=== PATIENT | male | born 1940 | race Caucasian/White ===

== ENCOUNTER → 2016-07-19 | Day surgery (SDC) | payer BC ==
[2016-06-22 10:31] VITALS: BMI 23.0
[2016-07-06 13:01] VITALS: Ht 185.4 cm; Wt 81.8 kg
[~2016-07-19] VITALS: Ht 185.4 cm; Wt 81.8 kg
[~2016-07-19] MED LIST: 500ML BSS 0.3ML EPI 1:1000PF IRRIG ONE; ACETAMINOPHEN 325 MG TAB PO PRN; AMVISC PLUS 0.8ML SYRINGE INT OCU ONE; ASPI81TA28 PO; ATROPINE SULFATE 0.1 MG/ML 5ML SYR IV PRN; BRIMONIDINE TART 0.2% OP SOLN PER DROP CHARGE ONE; BSS FLUSH ONE; CYCLOPENTOLATE HCL 1% OP SOLN PER DROP CHARGE OPL SCH; DIFL0.0519 OPL; DONE1TAB26 PO; ENDOCOAT 0.85ML SYRINGE INT OCU ONE; EpHEDrine SULFATE INJ 50 MG/ML AMP IV PRN; EpINEphrine INJ 1MG/ML AMP 1 MG/ML AMP ONE; KETOROLAC 0.5% OP SOLN PER DROP CHARGE OPL SCH; LACTATED RINGER'S 1000ML 500 ML IV SCH; LIDOCAINE 4% OP SOLN DROP CHARGE ONE; LIDOCAINE 4% OP SOLN DROP CHARGE OPL SCH; LIDOCAINE HCL 1% MPF 2 ML VIAL ONE; MIDAZOLAM HCL 1 MG/ML 2ML VIAL ONE; MIX: 3ML BSS AND 1ML EPI(PF) TOP ONE; MOXIFLOXACIN OPH SOLN PER DROP CHARGE ONE; MOXIFLOXACIN OPH SOLN PER DROP CHARGE OPL SCH; NEPA0.6D OPL; PHENYLEPHRINE HCL 2.5% OP SOLN PER DROP CHARGE OPL SCH; POVIDONE-IODINE OP SOLN 30 ML BTL ONE; PROPARACAINE 0.5% OP SOLN PER DROP CHARGE OPL SCH; RMNER16 PO; SILD100T PO; TOBRAMYCIN/DEXAMETHASONE OPH OINT PER APPLN CHARGE ONE; TROPICAMIDE 1% OP SOLN PER DROP CHARGE OPL SCH
[2016-07-19] MEDS: PHENYLEPHRINE HCL 2.5% OP SOLN PER DROP CHARGE OPL SCH ×2 (09:22→09:27)
[2016-07-19] MEDS: TROPICAMIDE 1% OP SOLN PER DROP CHARGE OPL SCH ×2 (09:23→09:28)
[2016-07-19] MEDS: CYCLOPENTOLATE HCL 1% OP SOLN PER DROP CHARGE OPL SCH ×2 (09:24→09:28)
[2016-07-19] MEDS: KETOROLAC 0.5% OP SOLN PER DROP CHARGE OPL SCH ×2 (09:25→09:30)
--- NOTE | 2016-07-19 09:25 | History & Physical Bridge - [place] ---
H&P Re-Evaluation Bridge Note: I have examined the patient, reviewed the History & Physical and in the interval since the performance of the History & Physical I have noted the following changes of clinical significance: No changes noted
[2016-07-19] MEDS: MOXIFLOXACIN OPH SOLN PER DROP CHARGE OPL SCH ×2 (09:26→09:36)
--- NOTE | 2016-07-19 10:16 | Discharge Instructions-SurgCtr ---
Discharge Instructions Visit Reason for Visit: Cataract Left Eye Discharge Discharge Diagnosis / Problem: cataract left eye Discharge Goals Goal(s): Improve function Activity Recommendations Activity Limitations: per Instructions/Follow-up section Lifting Limitations: no more than 5 pounds Anesthesia . Post Anesthesia Instructions: If you have had General Anesthesia or IV Sedation: * Do not drive today. * Resume driving when surgeon permits. * Do not make important decisions or sign legal documents today. * Call surgeon for: 1. Temperature elevations greater than 101 degrees F. 2. Uncontrollable pain. 3. Excessive bleeding. 4. Persistent nausea and vomiting. 5. Medication intolerance (nausea, vomiting or rash). * For nausea and vomiting use only clear liquids such as: tea, soda, bouillon until nausea subsides, then gradually increase diet as tolerated. * If you have any concerns or questions, call your surgeon's office. If physician is unavailable and it is an emergency, call 911 or go to the nearest emergency room. . Instructions / Follow-Up Instructions / Follow-Up ACTIVITY RECOMMENDATIONS: * Light activities * You may walk outside, read, watch television. * Mild irritation and blurred vision are common for the first few days, redness around the white part of the eye is common. MEDICATIONS: Resume previous medications unless instructed otherwise by your surgeon. Eye drops (today and tomorrow): Cipro - one drop in operative eye every 2 hours while awake Durezol - one drop in operative eye every 2 hours while awake Ilevro - one drop operative eye 1 times daily SPECIAL CARE INSTRUCTIONS: * If any problems or concerns, please call Dr. Perry's office at . * Keep plastic shield taped over eye to sleep at night. * Keep plastic shield taped over eye except to administer eye drops. * Keep plastic shield on until office visit the following day. FOLLOW UP VISIT: Follow-up with Dr. Perry in the [place] office as scheduled. If not already scheduled, please call the office at . Diet Recommendations Home Diet: resume previous diet Procedures Procedures Performed: Left Cataract Phacoemulsification With Intraocular Lens Implant Pending Studies Studies pending at discharge: no Medical Emergencies . Who to Call and When: Medical Emergencies: If at any time you feel your situation is an emergency, please call 911 immediately. . Non-Emergent Contact Non-Emergency issues call your: [employer] . . "Provider Documentation" section prepared by Sony Perry.
--- NOTE | 2016-07-19 10:16 | [facility] Post Operative Brief Note ---
Immediate Operative Summary Operative Date Jul 19, 2016. Pre-Operative Diagnosis Cataract left eye Post-Operative Diagnosis same Procedure(s) Performed Left Cataract Phacoemulsification With Intraocular Lens Implant Surgeon Dr Perry Dialer Surgeon(s) 0 Estimated Blood Loss 0 Findings cataract left eye Specimens 0 Complication(s) None Disposition Recovery Room / PACU
[2016-07-19 10:23] VITALS: TEMP 36.7
--- NOTE | 2016-07-19 10:35 | OPERATIVE REPORT ---
DATE OF OPERATION: 07/19/2016 POSTOPERATIVE DIAGNOSIS: Cataract, left eye. PREOPERATIVE DIAGNOSIS: Cataract, left eye. POSTOPERATIVE DIAGNOSIS: Cataract, left eye. PROCEDURE: Phacoemulsification cataract extraction with intraocular lens placement, left eye. SURGEON: Dr. Perry. COMPLICATIONS: None. ESTIMATED BLOOD LOSS: None. ANESTHESIA: Topical with sedation. OPERATION AND FINDINGS: After informed consent was obtained in the holding area the patient was wheeled back to the Operating Room where cardiac monitoring leads and oxygen by nasal cannula was administered by Anesthesia. Gentle IV sedation was given, and the patient's left eye was prepped and draped in usual sterile fashion. A wire lid speculum was placed into the left eye and the operating microscope was swung into position. Using 0.12 forceps and a Supersharp blade a paracentesis port was made 3 o'clock hours away from the 3 o'clock position of patient's left eye. 1% non-preserved Lidocaine was then injected into the anterior chamber for anesthesia. A 2.2 mm keratotome blade was then used to make a shelved clear corneal incision at the 3 o'clock position of the patient's left eye. Amvisc was injected into the anterior chamber and a cystotome and Utrata forceps were used to perform a curvilinear capsulorrhexis. BSS on a hydrodissection cannula was used to hydrodissect the lens nucleus away from the capsular bag. The phacoemulsification handpiece was then used in a stop and chop fashion to remove the lens nucleus. The irrigation and aspiration handpiece was then used to remove the residual cortical material. Amvisc was injected into the capsular bag and anterior chamber and a Bausch \T\ Lomb MX60, 25.0 diopter intraocular lens was injected into the capsular bag. Irrigation and aspiration handpiece was used to remove the residual viscoelastic material. The wounds were hydrated and noted to be watertight. The wire lid speculum was removed from the eye. Vigamox, Brimonidine, and TobraDex ointment were placed on the eye and it was shielded. It should be noted that EndoCoat was used during the case to protect the cornea endothelium. A mixture of 1 mL of nonpreserved epinephrine and 3 mL of BSS was also injected into the eye at the beginning of the case to aid with pupillary dilation. DISPOSITION: The patient tolerated the procedure well and was wheeled to the post anesthesia care unit in stable condition. I attest to the content of the Intraoperative Record and any orders documented therein. Any exceptions are noted below. I attest to the content of the Intraoperative Record and any orders documented therein. Any exceptio ns are noted below.
[2016-07-19 10:37] VITALS: BP 171/96; PULSE 63; O2SAT 97
--- NOTE | 2016-07-19 10:38 | Anesthesia Progress Nt - [facility] ---
Anesthesia Post Op Note Date & Time Jul 19, 2016 at 10:38 Vital Signs Pain Intensity: 0 Vital Signs Past 12 Hours Date Time Temp Pulse Resp B/P Pulse Ox O2 Delivery O2 Flow Rate FiO2 07/19/16 10:23 36.7 67 20 185/81 99 Room Air 07/19/16 09:15 36.7 73 18 182/98 97 Room Air Notes Mental Status: alert / awake / arousable, participated in evaluation Pt Amnestic to Procedure: Yes Nausea / Vomiting: adequately controlled Pain: adequately controlled Airway Patency, RR, SpO2: stable & adequate BP & HR: stable & adequate Hydration State: stable & adequate Anesthetic Complications: no major complications apparent
== END | disposition home or self-care (01) ==
LOC: X.SURG 08:57
PROVIDERS: ATTEND Ophthalmology
DX: H25.12 Age-related nuclear cataract, left eye (principal)

== ENCOUNTER → 2016-08-23 | Day surgery (SDC) | payer BC ==
[2016-08-12 11:38] VITALS: Ht 185.4 cm; Wt 81.8 kg
[~2016-08-23] VITALS: Ht 185.4 cm; Wt 81.8 kg
[~2016-08-23] MED LIST changes: -500ML BSS 0.3ML EPI 1:1000PF IRRIG ONE; +500ML BSSPLUS 0.5ML EPI1:1000 IRRIG ONE; -AMVISC PLUS 0.8ML SYRINGE INT OCU ONE; +ATROPINE SULFATE 1% OP OINT PER APPLICATION CHARGE ONE; -BRIMONIDINE TART 0.2% OP SOLN PER DROP CHARGE ONE; +BUPIVACAINE HCL 0.75% 10 ML AMP/VIAL ONE; +CEFAZOLIN SOD 1 GM VIAL ONE; -CYCLOPENTOLATE HCL 1% OP SOLN PER DROP CHARGE OPL SCH; +DEXAMETHASONE SOD INJ 4 MG/ML VIAL ONE; -ENDOCOAT 0.85ML SYRINGE INT OCU ONE; +FENTANYL CITRATE INJ 50 MCG/1 ML 2 ML VIAL IV PRN; +HYALURONIDASE HUMAN 150 UNIT/ML INJ ONE; +HydrALAZINE HCL 20 MG/ML VIAL ONE; +INDOCYANINE GREEN 25 MG/10 ML ONE; -KETOROLAC 0.5% OP SOLN PER DROP CHARGE OPL SCH; +LABETALOL HCL IV 5 MG/ML 20ML ONE; -LIDOCAINE 4% OP SOLN DROP CHARGE ONE; -LIDOCAINE 4% OP SOLN DROP CHARGE OPL SCH; -LIDOCAINE HCL 1% MPF 2 ML VIAL ONE; +LIDOCAINE HCL 2% 2 ML VIAL (20MG/ML) ONE; +LIDOCAINE MPF 4% INJ INJ ONE; -MIDAZOLAM HCL 1 MG/ML 2ML VIAL ONE; -MIX: 3ML BSS AND 1ML EPI(PF) TOP ONE; -MOXIFLOXACIN OPH SOLN PER DROP CHARGE ONE; -MOXIFLOXACIN OPH SOLN PER DROP CHARGE OPL SCH; +NEOMYCIN/POLYMYX/DEXAMETH OP OINT PER APP CHARGE ONE; +OCUCOAT 1 ML SOLN IO ONE; +ONDANSETRON INJ 2 MG/ML 2 ML VIAL IV PRN; -PHENYLEPHRINE HCL 2.5% OP SOLN PER DROP CHARGE OPL SCH; -POVIDONE-IODINE OP SOLN 30 ML BTL ONE; +PROPOFOL IV EMULSION 10 MG/ML 20 ML VIAL IV ONE; +TIMOLOL MALEATE 0.5% OP SOLN PER DROP CHARGE ONE; -TOBRAMYCIN/DEXAMETHASONE OPH OINT PER APPLN CHARGE ONE; -TROPICAMIDE 1% OP SOLN PER DROP CHARGE OPL SCH
[2016-08-23] MEDS: PHENYLEPHRINE HCL 2.5% OP SOLN PER DROP CHARGE OPL SCH ×2 (10:39→10:44)
[2016-08-23] MEDS: TROPICAMIDE 1% OP SOLN PER DROP CHARGE OPL SCH ×2 (10:40→10:45)
--- NOTE | 2016-08-23 11:44 | History & Physical Bridge - [place] ---
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 I have examined the patient, reviewed the History & Physical and in the interval since the performance of the History & Physical I have noted the following changes of clinical significance: No changes noted
--- NOTE | 2016-08-23 12:49 | Discharge Instructions-SurgCtr ---
Discharge Instructions Visit Reason for Visit: Left Eye Epiretinal Membrane Discharge Discharge Diagnosis / Problem: same Discharge Goals Goal(s): Improve function Activity Recommendations Activity Limitations: per Instructions/Follow-up section Anesthesia . Post Anesthesia Instructions: If you have had General Anesthesia or IV Sedation: * Do not drive today. * Resume driving when surgeon permits. * Do not make important decisions or sign legal documents today. * Call surgeon for: 1. Temperature elevations greater than 101 degrees F. 2. Uncontrollable pain. 3. Excessive bleeding. 4. Persistent nausea and vomiting. 5. Medication intolerance (nausea, vomiting or rash). * For nausea and vomiting use only clear liquids such as: tea, soda, bouillon until nausea subsides, then gradually increase diet as tolerated. * If you have any concerns or questions, call your surgeon's office. If physician is unavailable and it is an emergency, call 911 or go to the nearest emergency room. . Instructions / Follow-Up Instructions / Follow-Up * May take Tylenol if needed for discomfort. * Do NOT remove eye shield. * NO straining, heavy lifting (>15 pounds) or bending below waist. * Avoid getting water or soap directly into operative eye. * Do NOT rub eye. If you experience increasing eye pain not relieved by medication, please contact us immediately at [phone]. If you are unable to reach someone at the above number, call [phone] and ask to speak with the EYE DOCTOR REPRESENTATIVE. Inform them that you are a Dr. Ervin patient who had recent surgery. Diet Recommendations Home Diet: resume previous diet Procedures Procedures Performed: Left Eye 23 Guage Vitrectomy, Membrane Peeling Pending Studies Studies pending at discharge: no Medical Emergencies . Who to Call and When: Medical Emergencies: If at any time you feel your situation is an emergency, please call 911 immediately. . Non-Emergent Contact . . "Provider Documentation" section prepared by Varun Ervin.
--- NOTE | 2016-08-23 12:49 | [facility] Operative Report ---
Operative Report PREOPERATIVE DIAGNOSIS: Epiretinal membrane, left eye. ICD10: H35.372 POSTOPERATIVE DIAGNOSIS: same. PROCEDURE: 1. Pars plana vitrectomy, 23 gauge. 2. Membrane peeling of the internal limiting membrane and overlying epiretinal membrane. All to the left eye. CPT CODE: 52947 SURGEON: Varun Ervin D.O. COMPLICATIONS: None. ESTIMATED BLOOD LOSS: None. SPECIMENS: None. ANESTHESIA: Retrobulbar block and MAC. INDICATIONS FOR PROCEDURE: The patient has an epiretinal membrane that is visually significant. Vitrectomy surgery is indicated to decrease risk of vision loss and potentially improve vision. CONSENT: The risks, benefits and alternatives were discussed with the patient including but not limited to decreased visual acuity, failure to achieve desired results, loss of the eye, infection, pain, glaucoma, lens changes, retinal tears, retinal detachment, the need for more procedures, drooping of the eyelid, blindness, and double vision. The patient is aware of risks and consents to the surgery. Consent is signed and on the chart. OPERATION AND FINDINGS: The patient was brought to the operating room where the patient was identified by name, date, and medical record number. The surgical site was confirmed with the informed written consent. The patient was sedated by the anesthesiology team after which a 50:50 mixture of 4% lidocaine and 0.75% bupivacaine with hyaluronidase was administered in a standard retrobulbar fashion. A total of 4 ml was administered without difficulty. The patient was then prepped and draped in the usual sterile manner for retinal surgery. A wire lid speculum was placed and an Junior 23-gauge trocar cannula system was employed. The inferior temporal trocar cannula was first placed in an angled fashion 3.75mm posterior to the surgical limbus and the infusion cannula was inserted into this cannula after which the intravitreal position was verified prior to turning the infusion on. Two more trocar cannulas were then inserted in an angled fashion, one in the superior temporal, and one in the superior nasal quadrant both 3.75mm posterior to the surgical limbus. A light pipe and vitrector were then introduced into the eye and the BIOM wide angle viewing system was brought into place. Standard core vitrectomy was performed the vitreous was insured to be totally detached from the posterior pole with the aid of the vitrector. Next 0.05ml of indocyanine green was placed over the macular surface to stain the internal limiting membrane. This was washed from the eye after 10 seconds. At this point a flat contact lens was placed on the surface of the eye and a flex scraper and ILM forceps were used to gently peel the internal limiting membrane and overlying epiretinal membrane off of the macular surface without difficulty. At this point scleral depression was performed for 360 degrees and no retinal tears or detachments were noted. The trocar cannulas were then removed and found to be water tight. The intraocular pressure was found to be within normal limits by palpation and subconjunctival injections of Kefzol and dexamethasone were administered inferiorly and superiorly. The wire lid speculum was removed. Maxitrol was applied to the surface of the eye. A light patch and shield were taped over the surface of the eye and the patient left the Operating Room in stable condition having tolerated the procedure well. DISPOSITION: The patient has an appointment the following morning in the Ophthalmology Clinic. The patient is to call immediately if there are any problems overnight. I attest to the content of the Intraoperative Record and any orders documented therein. Any exceptions are noted below.
[2016-08-23 12:54] VITALS: TEMP 36.7
[2016-08-23 13:42] VITALS: BP 168/84; PULSE 69; O2SAT 97
--- NOTE | 2016-08-23 13:49 | Anesthesia Progress Nt - [facility] ---
Anesthesia Post Op Note Date & Time Aug 23, 2016 at 13:43 Vital Signs Pain Intensity: 0 Vital Signs Past 12 Hours Date Time Temp Pulse Resp B/P Pulse Ox O2 Delivery O2 Flow Rate FiO2 08/23/16 13:42 69 16 168/84 97 Room Air 08/23/16 13:17 67 16 192/92 97 Room Air 08/23/16 12:54 36.7 72 16 208/107 97 Room Air 08/23/16 10:33 36.4 77 18 184/93 99 Room Air Notes Mental Status: alert / awake / arousable, participated in evaluation Pt Amnestic to Procedure: Yes Nausea / Vomiting: adequately controlled Pain: adequately controlled Airway Patency, RR, SpO2: stable & adequate BP & HR: stable & adequate Hydration State: stable & adequate Anesthetic Complications: no major complications apparent The patient is a 76 y/o male with a h/o HTN, OA and prostate CA s/p L eye vitrectomy with Dr. Ervin. The patient's BP on arrival was elevated to 184/ 93. Per his , the patient's BP at his PCP last week was in the 130s systolic. He is not currently on any antihypertensive medications. The patient felt well with no complaints denying chest pain, shortness of breath, lightheaded or dizziness or HAs. No ECG changes on the monitor. Intraoperatively he was given 25mg IV Labetalol. He was also given a total of 10mg IV hydralazine in recovery. His BP on discharge improved to 168/84. The patient was instructed to take his BP tomorrow and if it is elevated to call his PCP. He was instructed to go to the ED if his BP was greater that 190 systolic or 100 diastolic or if he had any chest pain, shortness of breath, lightheaded or dizziness, severe BEAR or with any other concerns. He understands and agrees.
== END | disposition home or self-care (01) ==
LOC: X.SURG 10:13
PROVIDERS: ATTEND Ophthalmology
DX: H35.372 Puckering of macula, left eye (principal); I10 Essential (primary) hypertension; Z98.890 Other specified postprocedural states; Z85.46 Personal history of malignant neoplasm of prostate; Z87.891 Personal history of nicotine dependence

== ENCOUNTER → 2016-09-21 | Outpatient (CLI) | payer BC ==
[~2016-09-21] MED LIST changes: -500ML BSSPLUS 0.5ML EPI1:1000 IRRIG ONE; -ACETAMINOPHEN 325 MG TAB PO PRN; -ATROPINE SULFATE 0.1 MG/ML 5ML SYR IV PRN; -ATROPINE SULFATE 1% OP OINT PER APPLICATION CHARGE ONE; -BSS FLUSH ONE; -BUPIVACAINE HCL 0.75% 10 ML AMP/VIAL ONE; -CEFAZOLIN SOD 1 GM VIAL ONE; -DEXAMETHASONE SOD INJ 4 MG/ML VIAL ONE; -EpHEDrine SULFATE INJ 50 MG/ML AMP IV PRN; -EpINEphrine INJ 1MG/ML AMP 1 MG/ML AMP ONE; -FENTANYL CITRATE INJ 50 MCG/1 ML 2 ML VIAL IV PRN; -HYALURONIDASE HUMAN 150 UNIT/ML INJ ONE; -HydrALAZINE HCL 20 MG/ML VIAL ONE; -INDOCYANINE GREEN 25 MG/10 ML ONE; -LABETALOL HCL IV 5 MG/ML 20ML ONE; -LACTATED RINGER'S 1000ML 500 ML IV SCH; -LIDOCAINE HCL 2% 2 ML VIAL (20MG/ML) ONE; -LIDOCAINE MPF 4% INJ INJ ONE; -NEOMYCIN/POLYMYX/DEXAMETH OP OINT PER APP CHARGE ONE; -OCUCOAT 1 ML SOLN IO ONE; -ONDANSETRON INJ 2 MG/ML 2 ML VIAL IV PRN; -PROPARACAINE 0.5% OP SOLN PER DROP CHARGE OPL SCH; -PROPOFOL IV EMULSION 10 MG/ML 20 ML VIAL IV ONE; -TIMOLOL MALEATE 0.5% OP SOLN PER DROP CHARGE ONE
== END | disposition home or self-care (01) ==
LOC: C.LAB 14:20
PROVIDERS: ATTEND Urology
DX: C61 Malignant neoplasm of prostate (principal)

== ENCOUNTER → 2016-12-03 | Outpatient (CLI) | payer BC ==
[2016-12-03 09:41] LABS: BASO % 0.2 %; BASO ABS # 0.01 K/uL (0-0.2); COMPLETE YES; HEMATOCRIT 46.8 % (42-52); IG% 0.2 %; LYMPH ABS # 1.48 K/uL (1.2-3.4); MEAN CELL VOLUME 96.9 fL (80-100); MEAN CORPUSCULAR HEMOGLOBIN 31.3 pg (25-34); MEAN CORPUSCULAR HGB CONC 32.3 g/dl (32-36); MEAN PLATELET VOLUME 9.4 fL (7.4-10.4); MONO % 8.2 %; NEUT % 58.4 %; PLATELET COUNT 270 K/uL (130-400); RED BLOOD COUNT 4.83 M/uL (4.7-6.1); WHITE BLOOD COUNT 5.49 K/uL (4.8-10.8)
[2016-12-03 09:59] LABS: ALT/SGPT 26 U/L (12-78); AST/SGOT 19 U/L (15-37); BLOOD UREA NITROGEN 16 mg/dl (7-18); BUN/CREATININE RATIO 14.3 (10-20); CARBON DIOXIDE 28 mmol/L (21-32); CHLORIDE 107 mmol/L (98-107); CHOLESTEROL 190 mg/dl (0-200); GLUCOSE 88 mg/dl (70-99); POTASSIUM 3.9 mmol/L (3.5-5.1); SODIUM 143 mmol/L (136-145); TRIGLYCERIDES 106 mg/dl (0-150); VERY LOW DENSITY LIPOPROT CALC 21 mg/dl
[2016-12-03 10:10] LABS: ALB/GLOB RATIO 1.3 (0.9-2); ALKALINE PHOSPHATASE 81 U/L (45-117); CHOLESTEROL/HDL RATIO 3.2; HDL CHOLESTEROL 59 mg/dl; LDL CHOLESTEROL CALCULATED 110 mg/dl
== END | disposition home or self-care (01) ==
LOC: C.LAB 07:02
PROVIDERS: ATTEND Internal Medicine
DX: Z13.220 Encounter for screening for lipoid disorders (principal)

== ENCOUNTER 2023-02-06 09:39 | Observation (INO) ==
[2023-02-06] MEDS ORDERED: SODIUM CHLORIDE 0.9% 1000ML 1,000 ML IV ONE (09:58)
--- NOTE | 2023-02-06 10:03 | Emergency Department Note ---
History of Present Illness General Chief complaint: Dehydration Stated complaint: DEMENTIA, NOT EATING, DEHYDRATION Time Seen by Provider: 02/06/23 09:41 History of Present Illness Maximum Pain Intensity: 6 82-year-old male presents emergency department with family reportedly decreased p.o. intake and weight loss over the past week. Patient had constipation a few months ago has been on Colace and has had diarrhea. Patient denies any abdominal pain nausea or vomiting. Patient's family states he just will not eat. If he eats any solids he has been eating ice cream. Patient states that he is not hungry and there is been a reported weight loss. Family brought him in due to the potential for dehydration. He has not had any recent infections. Home Medications Medication Instructions Recorded Confirmed Type multivitamin (Daily Multi-Vitamin 1 tab PO DAILY 05/11/22 02/06/23 History tablet) donepezil 10 mg tablet 10 mg PO DAILY 11/19/22 02/06/23 History buspirone 10 mg tablet 10 mg PO BID #180 tabs 01/26/23 02/06/23 Rx Allergies Allergy/AdvReac Type Severity Reaction Status Date / Time No Known Allergies Allergy Verified 01/26/23 10:43 Past Med/Surg History Medical History (Updated 02/06/23 @ 12:18 by Jesn Santiago DO) Actinic keratosis Arthritis Elevated blood pressure reading without diagnosis of hypertension Fatigue Foot pain, bilateral Foot pain, right Gilbert's syndrome Insomnia Laryngopharyngeal reflux Male erectile disorder of organic origin Malignant neoplasm of prostate Mild neurocognitive disorder Neck pain Osteoarthritis, hand Pain in joint of right hip Varicocele Ventral hernia Vitamin D deficiency Surgical History History of prostate surgery History of repair of rotator cuff History of ventral hernia repair Family History Father Colon cancer Mother Alzheimer disease Brother Heart disease Myocardial infarction Denies family history of Ovarian cancer Prostate cancer Breast cancer Social History Smoking Status: Never smoker Tobacco Type: Cigarettes Age Started Using Tobacco: 14; Age Quit Using Tobacco: 18; Cigarettes Per Day: social; Second Hand Exposure: No; Do You Dip or Chew Tobacco: No; Hx Alcohol Use: No Hx Substance Use: No Preferred Language: Arabic Communication Ability: Effective Visual Impairment: Limited Hearing Ability: Normal Customer Service Officer Required: No marital status: Current Living Situation: Spouse current occupational status: retired How many Children do You have: 2 Feels Safe at Home: Yes Childhood Exposure to Second-Hand Smoke: Yes caffeine: No Dental Care, Regularly: Yes Physical Activity Frequency: 1-2 Times per Week Seatbelt Use: always Sunscreen Use: No (hat and long sleeves) Review of Systems Unobtainable due to cognitive status Physical Exam Vital Signs Vital Signs - 24 hr 02/06/23 09:46 02/06/23 10:13 02/06/23 10:13 Temperature 36.6 C Temperature Source Temporal Artery Scan Oral Pulse Rate 74 Respiratory Rate 20 Respiratory Effort / Characteristics Non-Labored Respiratory Depth Normal Normal Blood Pressure 205/91 H Blood Pressure Mean 129 Pulse Oximetry 99 Oxygen Delivery Method Room Air Room Air Sepsis Recent Fever Within 48 Hours No Sepsis New/Unexplained Change in Mental Status Yes Sepsis Action Taken by Nursing No Action Required 02/06/23 10:20 Temperature Temperature Source Pulse Rate 74 Respiratory Rate Respiratory Effort / Characteristics Respiratory Depth Blood Pressure Blood Pressure Mean Pulse Oximetry Oxygen Delivery Method Sepsis Recent Fever Within 48 Hours Sepsis New/Unexplained Change in Mental Status Sepsis Action Taken by Nursing GENERAL: Patient is awake alert in no acute distress patient is resting comfortably and showing no signs of anxiety; frail in appearance EYES: The conjunctivae are clear. The pupils are round and reactive. EARS, NOSE, MOUTH AND THROAT: The nose is without any evidence of any deformity. Mucous membranes are moist. Tongue is midline. Patient's lower lip has an area of bruising NECK: The neck is nontender and supple. RESPIRATORY: Normal respiratory effort is noted there is no evidence of wheezing rhonchi or rales CARDIOVASCULAR: Regular rate and rhythm noted there no murmurs rubs or gallops normal S1 normal S2. GASTROINTESTINAL: The abdomen is soft. Abdomen is nontender. No rebound rigidity or guarding BACK: No midline tenderness or or step-off noted range of motion in flexion extension as well as rotation no signs of muscle spasm noted MUSCULOSKELETAL/EXTREMITIES: There is no evidence of gross deformity full range of motion is noted in the hips and shoulders. SKIN: There is no obvious evidence of any rash. There are no petechiae, pallor or cyanosis noted. Poor skin turgor NEUROLOGIC: Patient is awake alert and oriented x1 Course Reevaluation(s) Reevaluation #1: Patient is resting in no distress on repeat examination. Time: 13:21 Consultations Consultation #1: Case was discussed with the [facility] for admit Time: 13:21 Administered Medications Discontinued Medications Acetaminophen (Acetaminophen 500 Mg Tab) 1,000 mg PO NOW STA Stop: 02/06/23 11:07 Last Admin: 02/06/23 11:50 Dose: 1,000 mg Documented By: SUSAN Sodium Chloride (Nss 1000ml) 1,000 mls @ 999 mls/hr IV .Q1H1M ONE Stop: 02/06/23 10:58 Last Infusion: 02/06/23 11:50 Dose: 0 mls/hr Documented By: Admin: 02/06/23 10:08 Dose: 999 mls/hr Documented By: SUSAN Medical Decision Making Medical Records Attestation: I reviewed the patient's medical records. Home Medications Current Medication List: was personally reviewed by me Laboratory Data Attestation: I reviewed the patient's lab results. Lab work interpreted by me is unremarkable except for a slightly elevated T. bili 02/06/23 10:02 02/06/23 10:02 Lab Results 02/06/23 02/06/23 02/06/23 Range/Units 10:02 10:02 10:02 WBC 5.97 (4.8-10.8) K/ul RBC 4.86 (4.70-6.10) M/uL Hgb 15.3 (14.0-18.0) g/dl Hct 45.1 (42.0-52.0) % MCV 92.8 (80.0-100.0) fL MCH 31.5 (25.0-34.0) pg MCHC 33.9 (32.0-36.0) g/dL RDW Std Deviation 44.4 (36.4-46.3) fL RDW Coeff of Jean-Paul 12.9 (11.5-14.5) % Plt Count 237 (130-400) K/uL MPV 9.0 L (9.4-12.4) fL Immature Gran % (Auto) 0.2 % Neut % (Auto) 63.8 % Lymph % (Auto) 22.3 % [place] % (Auto) 10.2 % Eos % (Auto) 3.0 % Baso % (Auto) 0.5 % Neut # (Auto) 3.81 (1.40-6.50) K/uL Lymph # (Auto) 1.33 (1.2-3.4) K/uL [place] # (Auto) 0.61 H (0.11-0.59) K/uL Eos # (Auto) 0.18 (0-0.50) K/uL Baso # (Auto) 0.03 (0-0.2) K/uL Immature Gran # (Auto) 0.01 (0.01-0.20) K/uL Sodium 139 (136-145) mmol/L Potassium 3.8 (3.5-5.1) mmol/L Chloride 104 (98-107) mmol/L Carbon Dioxide 29 (21-32) mmol/L Anion Gap 6 (3-11) BUN 17 (6-23) mg/dl Creatinine 1.08 (0.6-1.4) mg/dl Est Cr Clr Drug Dosing 40.2 ml/min Est GFR ( Amer) 72.7 ml/min Est GFR (Non-Af Amer) 62.7 ml/min BUN/Creatinine Ratio 15.7 (10-20) Glucose 95 (70-99(Fasting)) mg/dl Lactate (0.4-2.0) mmol/L Calcium 9.6 (8.6-10.3) mg/dl Magnesium 2.2 (1.7-2.4) mg/dl Total Bilirubin 1.8 H (0.2-1.0) mg/dl Direct Bilirubin 0.3 H (0-0.2) mg/dl AST 20 (13-39) U/L ALT 20 (7-52) U/L Alkaline Phosphatase 82 (34-104) U/L Troponin I High Sens 6.2 (0-20) pg/ml Total Protein 7.0 (6.0-8.3) gm/dl Albumin 4.3 (3.4-5.0) gm/dl Procalcitonin < 0.05 (0-0.5) ng/ml Urine Color Urine Appearance (Clear) Urine pH (4.5-7.5) Ur Specific [place] (1.000-1.030) Urine Protein (Negative) Urine Glucose (UA) (Negative) Urine Ketones (Negative) Urine Blood (Negative) Urine Nitrite (Negative) Urine Bilirubin (Negative) Urine Urobilinogen (Negative) Ur Leukocyte Esterase (Negative) 02/06/23 02/06/23 Range/Units 10:05 11:51 WBC (4.8-10.8) K/ul RBC (4.70-6.10) M/uL Hgb (14.0-18.0) g/dl Hct (42.0-52.0) % MCV (80.0-100.0) fL MCH (25.0-34.0) pg MCHC (32.0-36.0) g/dL RDW Std Deviation (36.4-46.3) fL RDW Coeff of Jean-Paul (11.5-14.5) % Plt Count (130-400) K/uL MPV (9.4-12.4) fL Immature Gran % (Auto) % Neut % (Auto) % Lymph % (Auto) % [place] % (Auto) % Eos % (Auto) % Baso % (Auto) % Neut # (Auto) (1.40-6.50) K/uL Lymph # (Auto) (1.2-3.4) K/uL [place] # (Auto) (0.11-0.59) K/uL Eos # (Auto) (0-0.50) K/uL Baso # (Auto) (0-0.2) K/uL Immature Gran # (Auto) (0.01-0.20) K/uL Sodium (136-145) mmol/L Potassium (3.5-5.1) mmol/L Chloride (98-107) mmol/L Carbon Dioxide (21-32) mmol/L Anion Gap (3-11) BUN (6-23) mg/dl Creatinine (0.6-1.4) mg/dl Est Cr Clr Drug Dosing ml/min Est GFR ( Amer) ml/min Est GFR (Non-Af Amer) ml/min BUN/Creatinine Ratio (10-20) Glucose (70-99(Fasting)) mg/dl Lactate 0.9 (0.4-2.0) mmol/L Calcium (8.6-10.3) mg/dl Magnesium (1.7-2.4) mg/dl Total Bilirubin (0.2-1.0) mg/dl Direct Bilirubin (0-0.2) mg/dl AST (13-39) U/L ALT (7-52) U/L Alkaline Phosphatase (34-104) U/L Troponin I High Sens (0-20) pg/ml Total Protein (6.0-8.3) gm/dl Albumin (3.4-5.0) gm/dl Procalcitonin (0-0.5) ng/ml Urine Color Yellow Urine Appearance Clear (Clear) Urine pH 7.5 (4.5-7.5) Ur Specific [place] 1.013 (1.000-1.030) Urine Protein Negative (Negative) Urine Glucose (UA) Negative (Negative) Urine Ketones Trace H (Negative) Urine Blood Negative (Negative) Urine Nitrite Negative (Negative) Urine Bilirubin Negative (Negative) Urine Urobilinogen Negative (Negative) Ur Leukocyte Esterase Negative (Negative) Imaging Data Attestation: I personally reviewed and interpreted this imaging study as follows: My Impression: Chest x-ray interpreted by me negative for infiltrate Radiologist's Impression: Chest X-Ray 02/06/23 09:57 XR chest 1V portable HISTORY: 82 years-old Male Sepsis acute sepsis COMPARISON: None TECHNIQUE: AP view of the chest FINDINGS: Cardiac mediastinal and hilar silhouettes are within normal limits. No pneumothorax, pleural effusion, airspace consolidation or pulmonary edema. Spondylotic spurring of the spine. IMPRESSION: No acute process. ACT 112: Negative or not required by law. The above report was generated using voice recognition software. It may contain grammatical, syntax or spelling errors. Electronically signed by: Gautam Saldaña M.D. 02/06/2023 10:32 AM ECG Data Attestation: I personally reviewed and interpreted this ECG as follows: Additional Comments: EKG interpreted by me normal sinus rhythm, left ventricular hypertrophy, no obvious ST segment elevation or depression, normal intervals, normal axis, rate is 73 Telemetry was ordered by me, interpreted as normal sinus rhythm rate of 73 MDM Narrative Medical decision making differential diagnosis includes dehydration, electrolyte abnormality, sepsis, urinary tract infection, failure to thrive Plan is to check sepsis labs, give IV fluids Independent history was provided by the patient's daughter at bedside External medical records were reviewed by me Patient has a failure to thrive, will not eat, has weight loss, family reportedly cannot handle taking care of the patient any further Patient will be admitted for potential placement and further evaluation Impression & Plan Dehydration, Dementia, Weakness Discharge Plan Visit Data Chief Complaint: Dehydration Stated Complaint: DEMENTIA, NOT EATING, DEHYDRATION ED Provider: Jens Santiago Discharge Problem: Dehydration, Dementia, Weakness Patient Disposition: Admitted As Inpatient Forms Stand Alone Forms: [facility] Prescriptions Prescriptions: No Action multivitamin [Daily Multi-Vitamin] Tablet 1 tab PO DAILY buspirone 10 mg tablet 10 mg PO BID Qty: 180 3RF donepezil 10 mg tablet 10 mg PO DAILY Rx Instructions: TAKE 1 TABLET DAILY Referrals Referrals: Juni Shin III, CRNP [Primary Care Provider] -
[2023-02-06 10:26] LABS: Basophils # (auto) 0.03 K/uL (0-0.2); Basophils % (auto) 0.5 %; Eosinophils # (auto) 0.18 K/uL (0-0.50); Hematocrit (blood only) 45.1 % (42.0-52.0); Hemoglobin 15.3 g/dl (14.0-18.0); Immature Granulocytes # (auto) 0.01 K/uL (0.01-0.20); Immature Granulocytes % (auto) 0.2 %; Lymphocytes # (auto) 1.33 K/uL (1.2-3.4); Lymphocytes % (auto) 22.3 %; Mean Corpuscular Hemoglobin 31.5 pg (25.0-34.0); Mean Corpuscular Hgb Conc 33.9 g/dL (32.0-36.0); Mean Corpuscular Volume 92.8 fL (80.0-100.0); Monocytes # (auto) 0.61 K/uL (0.11-0.59); Monocytes % (auto) 10.2 %; Neutrophils # (auto) 3.81 K/uL (1.40-6.50); Neutrophils % (auto) 63.8 %; Platelet Count 237 K/uL (130-400); RDW Coefficient of Variation 12.9 % (11.5-14.5); RDW Standard Deviation 44.4 fL (36.4-46.3); Red Blood Count 4.86 M/uL (4.70-6.10); White Blood Count 5.97 K/ul (4.8-10.8)
--- NOTE | 2023-02-06 10:33 | XRay Report ---
XR chest 1V portable HISTORY: 82 years-old Male Sepsis acute sepsis COMPARISON: None TECHNIQUE: AP view of the chest FINDINGS: Cardiac mediastinal and hilar silhouettes are within normal limits. No pneumothorax, pleural effusion , airspace consolidation or pulmonary edema. Spondylotic spurring of the spine. IMPRESSION: No acute process. ACT 112: Negative or not required by law. The above report was generated using voice recognition software. It may contain grammatical, syntax o r spelling errors. Electronically signed by: Gautam Saldaña M.D. 02/06/2023 10:32 AM
[2023-02-06 10:57] LABS: Albumin Level 4.3 gm/dl (3.4-5.0); BUN Creatinine Ratio 15.7 (10-20); Bilirubin Direct 0.3 mg/dl (0-0.2); Bilirubin,Total 1.8 mg/dl (0.2-1.0); Calcium 9.6 mg/dl (8.6-10.3); Creatinine Clr Calc Pharmacy 40.2 ml/min; Est GFR (African American) 72.7 ml/min; Est GFR (Non-African American) 62.7 ml/min; Magnesium 2.2 mg/dl (1.7-2.4); Potassium 3.8 mmol/L (3.5-5.1)
[2023-02-06 11:03] LABS: Troponin I High Sensitivity 6.2 pg/ml (0-20)
[2023-02-06] MEDS ORDERED: ACETAMINOPHEN 500 MG TAB PO STA (11:06)
[2023-02-06 12:03] LABS: Appearance Urine Clear (Clear); Bilirubin Urine Negative (Negative); Blood Urine Negative (Negative); Color Urine Yellow; Glucose Urine UA Negative (Negative); Ketones Urine Trace (Negative); Leukocyte Esterase Urine Negative (Negative); Nitrite Urine Negative (Negative); Protein Urine Negative (Negative); Specific Gravity Urine 1.013 (1.000-1.030); Urobilinogen Urine Negative (Negative); pH Urine 7.5 (4.5-7.5)
--- NOTE | 2023-02-06 12:44 | Electrocardiogram Report ---
Test Reason : Blood Pressure : / mmHG Vent. Rate : 073 BPM Atrial Rate : 073 BPM P-R Int : 198 ms QRS Dur : 092 ms QT Int : 412 ms P-R-T Axes : 075 043 002 degrees QTc Int : 453 ms Normal sinus rhythm Left ventricular hypertrophy with repolarization abnormality Abnormal ECG When compared with ECG of 28-OCT-2014 11:51, Nonspecific T wave abnormality now evident in Anterior leads Confirmed by Varun Yoon ([id number]) on 02/06/2023 12:43:52 PM Referred By: Confirmed By:Tato Yoon
--- NOTE | 2023-02-06 13:14 | History & Physical Report ---
Date of Service February 06, 2023 Assessment & Plan (1) Weakness: Plan: Weakness with poor p.o. intake. ?primary loss of appetite 2/2 dementia vs constipation with overflow Patient has refused to eat for the last week citing constipation despite having liquid bowel movements with laxatives at home Patient has had progressively decreasing diet with severe underlying dementia for the last few months, it is much worse in the last week Seen at the bedside with his daughter who notes significant distress over this. Notes at one point to Jefe "you cannot put me in this position to let you starve, it is amoral ". Did clarify natural history of dementia, and that after losing the drive to eat it sometimes causes more distress for patient to attempt to eat through discomfort, and that alternative options such as feeding tubes are very invasive and often not within what he patient would have wanted for themselves. Reviewed that patient's may sometimes wish to eat only what is comfortable, knowing that they will eventually pass if they have decreased nutri tion but comfort oriented nutrition can help preserve quality of life and bodily integrity over length of life. Did discuss meeting with palliative care to which they are open to. Patient did have moderate colonic retention on CT scan in November. Given significant distress and worsened will repeat CT.? Stool burden, patient despite having diarrhea may be constipated and having overflow incontinence in which case may benefit from an aggressive bowel regimen Will attempt appetite stimulation with Marinol starting at 2.5 mg twice daily and uptitrate PT/OT pending, CM consulted Severe dementia Continue donepezil At risk for delirium, melatonin nightly, delirium precautions DVT prophylaxis: Lovenox Diet: Regular as tolerated Disposition: Medical/surgical CODE STATUS: DNR/DNI discussed with Jefe and his daughter at bedside (2) Dehydration: History of Present Illness Primary Care Provider: Juni Shin, III, AMRITA Jefe is an 82-year-old male with a past medical history of hypertension, weakness, dementia, tenderness who presents [facility] placement request. Won't eat, weight loss. Patient seen with daughter at the bedside. They note that Jefe has been losing weight over the previous few months, and especially in the last week as he has refused to eat. She notes that due to his dementia he does not remember having bowel movements, despite taking Colace/senna and having diarrhea daily, and having had abdominal imaging which shows no obstruction or abnormalities or constipation, Jefe is not hungry and refuses to eat and he cites the reason as being constipated. This is very distressing to her, and notes he is "wasting away pound by pound ". Did not notice any fever, chills, sweats. He has not had any abdominal pain. He does have some perirectal pain which his daughter thinks is from having diarrhea, has not had any ulcers or open wounds. History from the patient is extremely limited, he does not remember the year or where he lives. He is oriented to name only. Medical History: Reviewed Medications: Reviewed Surgical History: Reviewed Family history: Reviewed Allergies: Reviewed Social History:Reviewed Code Status: DNR/DNI Allergies Allergy/AdvReac Type Severity Reaction Status Date / Time No Known Allergies Allergy Verified 01/26/23 10:43 Home Medications Medication Instructions Recorded Confirmed Type multivitamin (Daily Multi-Vitamin 1 tab PO DAILY 05/11/22 02/06/23 History tablet) donepezil 10 mg tablet 10 mg PO DAILY 11/19/22 02/06/23 History buspirone 10 mg tablet 10 mg PO BID #180 tabs 01/26/23 02/06/23 Rx Past Med/Surg History Medical History Actinic keratosis Arthritis Elevated blood pressure reading without diagnosis of hypertension Fatigue Foot pain, bilateral Foot pain, right Gilbert's syndrome Insomnia Laryngopharyngeal reflux Male erectile disorder of organic origin Malignant neoplasm of prostate Mild neurocognitive disorder Neck pain Osteoarthritis, hand Pain in joint of right hip Varicocele Ventral hernia Vitamin D deficiency Surgical History History of prostate surgery History of repair of rotator cuff History of ventral hernia repair Family History Father Colon cancer Mother Alzheimer disease Brother Heart disease Myocardial infarction Denies family history of Ovarian cancer Prostate cancer Breast cancer Social History Smoking Status: Never smoker Tobacco Type: Cigarettes Age Started Using Tobacco: 14; Age Quit Using Tobacco: 18; Cigarettes Per Day: social; Second Hand Exposure: No; Do You Dip or Chew Tobacco: No; Hx Alcohol Use: No Hx Substance Use: No Preferred Language: Beninese Communication Ability: Effective Visual Impairment: Limited Hearing Ability: Normal It Security Consultant Required: No marital status: Current Living Situation: Spouse current occupational status: retired How many Children do You have: 2 Feels Safe at Home: Yes Childhood Exposure to Second-Hand Smoke: Yes caffeine: No Dental Care, Regularly: Yes Physical Activity Frequency: 1-2 Times per Week Seatbelt Use: always Sunscreen Use: No (hat and long sleeves) Review of Systems Review of Systems: Unobtainable due to cognitive status Physical Exam Physical Exam: General: Oriented to name on HEENT: Atraumatic, normocephalic. Pulm: CTAB A&P. -wheezes, -rales, -rhonchi. Symmetrical chest rise. No increased work of breathing. No respiratory distress. Cardiac: RRR, -mrg. Radial pulses intact and symmetrical. Abdominal: Nontender, nondistended, soft. BS present. Extremities: Warm, dry. Thin Results & Data Results & Data Vital Signs (Past 12 Hours) Vital Signs Temp Pulse Resp BP Pulse Ox O2 Del Method 02/06/23 10:20 74 02/06/23 10:13 Room Air 02/06/23 09:46 36.6 C 74 20 205/91 H 99 Room Air PG Care Time/CCT Total # of Minutes Spent Total Time Spent with Patient: Total time spent is greater than 50% in coordination of care (as documented) at patient's floor/unit and/or counseling patient: Coding Level of Care Code 68817 INT INP/OBS CARE 2/55MIN Diagnoses Weakness R53.1 Dehydration E86.0
[2023-02-06] MEDS ORDERED: OPTIRAY 320 100ml IV ONE (14:03)
[2023-02-06] MEDS ORDERED: amLODIPine BESYLATE 5 MG TAB PO ONE (14:25)
--- NOTE | 2023-02-06 14:32 | CT Scan Report ---
ABDOMEN AND PELVIS CT WITH IV CONTRAST CT DOSE: 623.47 mGy.cm HISTORY: Generalized abdominal pain. abd discomfort ?stool burden TECHNIQUE: Multiaxial CT images of the abdomen and pelvis were performed following the use of intrave nous contrast. A dose lowering technique was utilized adhering to the principles of ALARA. COMPARISON STUDY: Abdomen and pelvis CT 11/19/2022. FINDINGS: The lung bases are clear. No pneumoperitoneum. No pneumatosis. Degenerative changes within the lumbar spine. Old, healed left posterior rib fractures. Tiny fat-containing bilateral inguinal he rnias. There is a 1.6 cm gallstone. No gallbladder wall thickening. The liver, spleen, adrenal glands , and pancreas are unremarkable. There is a stable 9 mm hypodense lesion within the left kidney. This favors a cyst. No hydronephrosis. Calcified plaque within the normal caliber abdominal aorta. No ret roperitoneal or pelvic lymphadenopathy. No bladder wall thickening. There are few small bladder diver ticula noted. No pelvic free fluid. Prior prostatectomy. Colonic diverticulosis. No evidence for acut e diverticulitis. Normal appendix. Small amount of well-formed stool seen within the colon. IMPRESSION: 1. No bowel wall thickening or obstruction. 2. Colonic diverticulosis. No evidence for acute diverticulitis. 3. Normal appendix. 4. Small amount of well-formed stool seen within the colon. 5. Cholelithiasis. No gallbladder wall thickening. 6. Additional findings as described above. ACT 112: Negative or not required by law. Electronically signed by: Dakota Nieves M.D. 02/06/2023 2:30 PM
[2023-02-06] MEDS ORDERED: MELATONIN 3 MG TAB PO PRN (15:34)
[2023-02-06] MEDS ORDERED: ACETAMINOPHEN 325 MG TAB PO PRN (15:34)
[2023-02-06] MEDS ORDERED: hydrALAZINE HCL 20 MG/ML VIAL IV PRN (15:39)
[2023-02-06] MEDS: droNABinol 2.5 MG CAP PO SCH (20:09)
[2023-02-06] MEDS: busPIRone 5 MG TAB PO SCH (20:09)
[2023-02-07] MEDS: droNABinol 2.5 MG CAP PO SCH ×2 (09:09→21:39)
[2023-02-07] MEDS: DONEPEZIL HCL 10 MG TAB PO SCH (09:11)
[2023-02-07] MEDS: MULTIVITAMIN TAB PO SCH (09:11)
[2023-02-07] MEDS: busPIRone 5 MG TAB PO SCH ×2 (09:11→21:40)
[2023-02-07] MEDS ORDERED: hydrALAZINE HCL 20 MG/ML VIAL IV PRN (09:17)
--- NOTE | 2023-02-07 10:35 | Palliative Care Consultation ---
Date of Consultation February 07, 2023 Assessment & Plan (1) Anorexia: pt is not eating or drinking much bc he perseverates on his BMs and remains convinced it is related to his eating: he feels if he does not eat then he will not have BM, but also feels he has not had BMs though he has loose recurrent stools. he is unable to comprehend the issues. (2) Weakness generalized: progressive dementia, poor oral intake, weakness progressive (3) Cachexia: see #2 above (4) Altered mental status: (5) Vascular dementia: (6) Palliative care by specialist: Met with pt/family. Provided overview of Palliative Medicine, a subspecialty that provides specialized medical care for people living with a serious illness by offering a focus on quality of life. Palliative Medicine is often conflated with hospice: I advised patient/family that Palliative and hospice can be partners but we are not the same. It is important to understand the difference so that we may be informed, and not afraid. Palliative Medicine works to improve QOL through reduction of symptom burden/more control over their illness, for both the patient and family. Palliative medicine clinicians are board certified, specially-trained and another member of the patient's medical care team. We often provide an extra layer of support because our care is based on the needs of the patient, not the prognosis; as such, it's appropriate at any age/adva ncing stage of a serious illness and can be provided along with curative treatment. Palliative Medicine clinicians are also trained in advanced communication methodologies, to facilitate complex discussions about advanced illness planning, which are needed to help assure that the treatment choices match the patient's goals, aka delivering Goal Concordant care. Finally, we discussed that hospice is a visiting nurse service that focuses on care delivered at the very end of life for patients with terminal illness, with life expectancy less than 6 month. (7) Advanced care planning/counseling discussion: A 45min face to face ACP was held with at pt bedside. We reviewed that all chronic/progressive disease has a declining trajectory over time where facets of patient self-identity and independence are lost. Every acute event leads to a further decline, resulting- many times, in a new baseline. Advised that the greatest priority is to determine what matters most to pt, then family and to develop a plan of care that is aligned with those priorities. We reviewed the following facts about dementia: * Dementia is a terminal illness. Aggressive medical treatment for residents with advanced dementia is often inappropriate for medical reasons, has a low rate of success, and can have negative outcomes that hasten functional decline and . ([employer] Ger[employer] Society Ethics Committee and Clinical Practice and Models of Care Committee. J Am Geriatr Soc. 2014 Feb;62(8):1590-3 and Ramiro SL, Felix JM, Jones SC, Refugio V. A national study of the location of for older persons with dementia. J Am Geriatr Soc 2005; 53(2):299-305 .) * Tube feeding in residents with advanced dementia does not increase survival. It does not prevent aspiration pneumonia, malnutrition or pressure ulcers. It does not reduce the risk of infections or improve functional status or comfort of the patient. (from: Jose Guadalupe Sullivan LM T Percutaneous endoscopic gastrostomy does not prolong survival in patients with dementia. Arch [employer]er Med 2003; 163(11):8075-9661 AND Yudi DE, Damon ANNETTE, Trung J, Cuauhtemoc S, Raulito RS. High short-term mortality in hospitalized patients with advanced dementia - Lack of benefit of tube feeding. Arch [employer] Med 2001; 161(4):594- 599.) * Simple strategies involving hands-on care by well-trained staff such as massage, oral hygiene, changes in diet, and hand-feeding -- can prevent infec tion and manage feeding problems without resort to tube-feeding. * Tube feeding does not prevent aspiration pneumonia and might actually increase its incidence, and does not prevent the consequences of malnutrition * Hand feeding can be provided until the beginning of the dying process when all physiological processes shut down, note that cognitively intact cancer patients indicate that dying residents do not feel hunger and thirst. * Voluntary refusal of food and liquids is often initiated by hospice patients and does not result in discomfort * The majority of older Americans whose underlying cause of is attributable to dementia on their certificate in nursing homes. State-level factors, including the availability of hospital and penitentiary beds and the age of decedents in the population, explain, in part, the wide [id number] variability in the proportion of dementia-related deaths occurring in the hospital. * Older adults with dementia frequently receive acute care in their last year of life although Hospice care was more common for home/[facility]LEN residents. Overall time in hospice remains short due to the underutilization of the hospice benefit for terminal dementia (Tip MM, Esmer JM, Jara KM, Stanislaw DE, Lenora PY. Dementia Care in the Last Year of Life: Experiences in a Community Practice and in Fci Facilities. J Palliat Care. 2022;38(2):135-142. doi:10.1177/[id number]) * Home Hospice is a valuable option for terminal dementia who desire to have peaceful EOL at home. Home hospice care for advanced dementia can improve symptom management and caregiver satisfaction, while decreasing caregiver burden, preventing hospitalizations and discontinuing unnecessary medications (Selena SA, Aspen R, Angela G, et al. Home hospice for older people with advanced dementia: a aircraft pilot project [published correction appears in Isr J Health Policy Res. 2019 Jan 01;8(1):56]. Isr J Health Policy Res. 2019;8(1):42. Published 2018November 06. doi:10.1186/v09118-445-9389-a) * If the plan if for SNF placement, I recommend hospice at SNF: Hospice is a valuable service for persons with advanced dementia, particularly in management of pain, continuous involvement of the primary physician, and avoidance of hospitalization. Social support provided to caregivers is also important given their high levels of depressive symptoms and anxiety. The goal of care for residents with advanced dementia is primarily maintenance of function and patient should not be transferred to an acute care setting becau se hospitalization results in decline of functional abilities that do not recover after discharge back into penitentiary. If this is desired, then Care Mgt follow up is needed to determine if pt is eligible for hospice at SNF/deferred to CM and primary team. Plan * I suggested meeting with nutrition to see if there are more calorically dense options to offer pt through the day and encourage PO, agrees. * Multiple organizations, including the [employer] Hospice and Palliative Medicine and the [employer] Geriatrics Society, have released statements endorsing the following approach to nutritional support in advanced dementia: Dont recommend percutaneous feeding tubes in patients with advanced dementia; instead, offer oral assisted feeding. * would like home with hospice, and she is honest that if pt reaches a point of where he does not eat or drink at all and is going to soon, she would seek hospice assistance for respite care because she would not be able to emotionally handle that stage of his terminal dementia. * I provided my contact information and offered OP follow up via telemed or in person as desired. * I provided with [facility] dementia and [facility] care pt caregiver resource and [email or web address] handouts for progressive dementia changes to expect. * Primary team and CM notified. * TS 90min: 15min chart review, 20 min with pt, 45min with ACP, 10 min updating primary team/care mgt/nutrition and care coordination Thank you for allowing us to participate in the ongoing care of this patient. Please don't hesitate to call or page with any additional concerns. Dr. Nivia Slaughter DNP Director, Palliative Care History of Present Illness Reason for Consultation: chcf goals, progressive dementia Attending Physician: Per Swift MD History of Present Illness Jefe is an 82-year-old male with a past medical history of hypertension, weakness, dementia, tenderness who presents with placement request. Per family, pt is not eating and has been losing weight. Per chart, "Patient has refused to eat for the last week citing constipation despite having liquid bowel movements with laxatives at home Patient has had progressively decreasing diet with severe underlying dementia for the last few months, it is much worse in the last week." Jefe's SDM is his . It is noted that she calls him "dad" and he calls her "mom." they have been for 58yrs. 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 Per , she is struggling with the changes he has been experiencing and feeling that pt's increasing anorexia / "choosing not to eat" is what she defines as "amoral" and "forcing her to let him starve." Allergies Allergy/AdvReac Type Severity Reaction Status Date / Time No Known Allergies Allergy Verified 01/26/23 10:43 Home Medications Medication Instructions Recorded Confirmed Type multivitamin (Daily Multi-Vitamin 1 tab PO DAILY 05/11/22 02/06/23 History tablet) donepezil 10 mg tablet 10 mg PO DAILY 11/19/22 02/06/23 History buspirone 10 mg tablet 10 mg PO BID #180 tabs 01/26/23 02/06/23 Rx Patient History Medical History (Updated 02/07/23 @ 14:37 by Nivia Slaughter, ASA) Actinic keratosis Arthritis Elevated blood pressure reading without diagnosis of hypertension Fatigue Foot pain, bilateral Foot pain, right Gilbert's syndrome Insomnia Laryngopharyngeal reflux Male erectile disorder of organic origin Malignant neoplasm of prostate Mild neurocognitive disorder Neck pain Osteoarthritis, hand Pain in joint of right hip Varicocele Ventral hernia Vitamin D deficiency Surgical History History of prostate surgery History of repair of rotator cuff History of ventral hernia repair Family History Father Colon cancer Mother Alzheimer disease Brother Heart disease Myocardial infarction Denies family history of Ovarian cancer Prostate cancer Breast cancer Social History Smoking Status: Former smoker Tobacco Type: Cigarettes Age Started Using Tobacco: 14; Age Quit Using Tobacco: 18; Cigarettes Per Day: social; Second Hand Exposure: No; Do You Dip or Chew Tobacco: No; Hx Alcohol Use: No Hx Substance Use: No Preferred Language: Nicaraguan Communication Ability: Impaired Visual Impairment: Limited Hearing Ability: Normal Numerical Control Machine Tool Operator Required: No Beliefs That Will Affect Care: None marital status: Current Living Situation: Spouse current occupational status: retired How many Children do You have: 2 Feels Safe at Home: Yes Safety Concerns: Feels Safe At This Time Childhood Exposure to Second-Hand Smoke: Yes caffeine: No Dental Care, Regularly: Yes Physical Activity Frequency: 1-2 Times per Week Seatbelt Use: always Sunscreen Use: No (hat and long sleeves) Assistive Devices: Walker Review of Systems Review of Systems: Unobtainable due to cognitive status Physical Exam Physical Exam: pt semi reclined in bed agitated and repeatedly asking why he is here states he has not had a BM and people are lying to him resp effort WAL. no use of accessory muscles no JVD abdomen scaphoid extremities weak skin pale alert to self Results & Data Vital Signs (Past 12 Hours) Vital Signs Temp Pulse Resp BP Pulse Ox O2 Del Method 02/07/23 07:45 36.6 C 97 H 16 129/67 97 Room Air Laboratory Results data reviewed Diagnostic Findings data reviewed PG Care Time/CCT Total # of Minutes Spent Total Time Spent: 90 Total Time Spent with Patient: Total time spent is greater than 50% in coordination of care (as documented) at patient's floor/unit and/or counseling patient: Advanced Care Planning 55391 Advanced Care Planning 30 Min 66413 Advanced Care Planning Additional 30 [place] [address] IN/OBS CONSULT LVL 5,80M Patient Type New History Comprehensive Exam Comprehensive Medical Decision Making High Complexity Diagnoses Anorexia R63.0 Weakness generalized R53.1 Cachexia R64 Altered mental status R41.82 Vascular dementia F01.50 Palliative care by specialist Z51.5 Advanced care planning/counseling discussion Z71.89 Additional Codes Advanced Care Planning - 14881 Advanced Care Planning 30 Min: 89184 Advanced Care Planning 30 Min ([id number]) Advanced Care Planning - 89184 Advanced Care Planning Additional 30 Min: 22815 Advanced Care Planning Additional 30 Min ([id number])
--- NOTE | 2023-02-07 14:17 | Hospitalist Progress Note ---
Date of Service February 07, 2023 Assessment & Plan (1) Failure to thrive in adult: Plan: Due to advanced dementia. Supportive care. Palliative care consult noted and appreciated. Marinol has been started to see if it will help with his anorexia. (2) Dementia: Plan: Supportive care. Continue current medical manage (3) Weakness: Plan: Physical therapy and Occupational Therapy if patient will allow. Plan The has opted to take the patient home with hospice care. Hopefully home tomorrow, February 08, arrangements are finalized Admission and Anticipated Discharge Date Admission Date: February 06, 2023 Subjective The patient is awake and alert but chronically disoriented. is at the bedside. Palliative care has seen the patient and the is opted for the patient to go home with hospice care. Blood cultures are negative to date. Lab studies are unremarkable. The understands that the Marinol may not help with his appetite since the cause of his anorexia is severe dementia. Review of Systems Review of Systems: The patient is unable to accurately answer any questions related to review of systems Physical Exam Physical Exam: General-alert but chronically disoriented. No distress HEENT-head atraumatic and normocephalic, pupils equal and reactive to light, extraocular muscles intact Neck-no lymphadenopathy or thyromegaly, trachea midline Chest-clear to auscultation percussion. No rales wheezing or rhonchi Cardiac-regular rate and rhythm, normal S1 and S2 Abdomen-normal bowel sounds, nontender, no hepatosplenomegaly Extremities-no cyanosis, clubbing, or edema Neuro-cranial nerves II through XII intact, motor and sensory function within normal limits, strength symmetrical , no focal deficits Psych-pleasantly confused Results & Data Results & Data Vital Signs (Past 12 Hours) Vital Signs Temp Pulse Resp BP Pulse Ox O2 Del Method 02/07/23 07:45 36.6 C 97 H 16 129/67 97 Room Air Laboratory Results 02/06/23 10:02 02/06/23 10:02 PG Care Time/CCT Total # of Minutes Spent Total Time Spent with Patient: Total time spent is greater than 50% in coordination of care (as documented) at patient's floor/unit and/or counseling patient: Coding Level of Care Code 17394 SUB INP/OBS CARE 3/50MIN Diagnoses Failure to thrive in adult R62.7 Dementia F03.90 Weakness R53.1
[2023-02-08] MEDS: DONEPEZIL HCL 10 MG TAB PO SCH (08:15)
[2023-02-08] MEDS: droNABinol 2.5 MG CAP PO SCH (08:15)
[2023-02-08] MEDS: busPIRone 5 MG TAB PO SCH (08:15)
[2023-02-08] MEDS: MULTIVITAMIN TAB PO SCH (08:16)
[2023-02-08] MEDS ORDERED: DOCUSATE SODIUM 100 MG CAP PO SCH (11:30)
[2023-02-08] MEDS ORDERED: POLYETHYLENE (MIRALAX) 17 GM PACK PO SCH (11:30)
--- NOTE | 2023-02-08 11:47 | Discharge Summary ---
Date of Service February 08, 2023 Admission HPI Per Admitting Provider Jefe is an 82-year-old male with a past medical history of hypertension, weakness, dementia, tenderness who presents wit placement request. Won't eat, weight loss. Patient seen with daughter at the bedside. They note that Jefe has been losing weight over the previous few months, and especially in the last week as he has refused to eat. She notes that due to his dementia he does not remember having bowel movements, despite taking Colace/senna and having diarrhea daily, and having had abdominal imaging which shows no obstruction or abnormalities or constipation, Jefe is not hungry and refuses to eat and he cites the reason as being constipated. This is very distressing to her, and notes he is "wasting away pound by pound ". Did not notice any fever, chills, sweats. He has not had any abdominal pain. He does have some perirectal pain which his daughter thinks is from having diarrhea, has not had any ulcers or open wounds. History from the patient is extremely limited, he does not remember the year or where he lives. He is oriented to name only. Medical History: Reviewed Medications: Reviewed Surgical History: Reviewed Family history: Reviewed Allergies: Reviewed Social History:Reviewed Code Status: DNR/DNI Principal Diagnosis Failure to thrive, end-stage dementia Discharge Exam General-alert but chronically disoriented. No distress HEENT-head atraumatic and normocephalic, pupils equal and reactive to light, extraocular muscles intact Neck-no lymphadenopathy or thyromegaly, trachea midline Chest-clear to auscultation percussion. No rales wheezing or rhonchi Cardiac-regular rate and rhythm, normal S1 and S2 Abdomen-normal bowel sounds, nontender, no hepatosplenomegaly Extremities-no cyanosis, clubbing, or edema Neuro-cranial nerves II through XII intact, motor and sensory function within normal limits, strength symmetrical , no focal deficits Psych-pleasantly confused Discharge Data Allergies Allergy/AdvReac Type Severity Reaction Status Date / Time No Known Allergies Allergy Verified 01/26/23 10:43 Consultations 02/06/23 12:10 ED Decision to Admit Stat 02/06/23 15:34 Consult Palliative Care Routine Ordered Studies 02/06/23 13:33 CT Abd and Pelvis [CT abd pelvis IV con only] Routine Hospital Course (1) Failure to thrive in adult: Due to advanced dementia. Supportive care. Palliative care consult noted and appreciated. Marinol was started this admission but has since been discontinued (2) Dementia: Supportive care. Continue current medical manage (3) Weakness: Physical therapy and Occupational Therapy if patient will allow. Plan Home with hospice care today, February 08 Total Time Total Time Spent Total Time Spent (In Minutes): 45 minutes Discharge Plan Discharge Items Patient Disposition: Hospice - Home Reason For Visit: WEAKNESS Discharge Diagnosis: Adult failure to thrive, end-stage dementia, anorexia Activity: Resume your previous activity Non-emergency contact: Primary Care Provider Call non-emergency contact if: you have any medication questions Follow-up/Referrals: Juni Shin III, AMRITA [Primary Care Provider] - Diet: Regular Addtl Attending Provider Instructions: Take Colace and MiraLAX for constipation. Hospice care will assist at home Pending Studies at Discharge: No Stand-Alone Forms: BlikBook, Smoking Cessation Medications and DC Order Prescriptions: New docusate sodium 100 mg Capsule 100 mg PO BID Qty: 0 0RF polyethylene glycol 3350 [Miralax] 17 gram Powder In Packet 17 g PO BID Qty: 0 0RF Continued multivitamin [Daily Multi-Vitamin] Tablet 1 tab PO DAILY buspirone 10 mg tablet 10 mg PO BID Qty: 180 3RF donepezil 10 mg tablet 10 mg PO DAILY Rx Instructions: TAKE 1 TABLET DAILY Discharge Orders: Discharge Order (Routine); Ordered 02/08/23 Ordered By: Per Swift Admission Data Admit Date/Time: 02/06/23 13:36 Attending Provider: Per Swift Admit Provider: Jossue Sheikh Primary Care Provider: Juni Shin III Other Providers: Jossue Sheikh ; Lani Fonseca ; Nivia Slaughter Coding Level of Care Code 71275 INP/OBS DISCH >30 MIN Diagnoses Failure to thrive in adult R62.7 Dementia F03.90 Weakness R53.1
== END 2023-02-08 13:10 | disposition hospice, home (50) ==
LOC: 3N 09:39 → ED 09:39 → SUATTDRO 13:36 → 3N 15:11